=== PATIENT | male | born 1965 | race Caucasian/White ===

== ENCOUNTER 2016-09-24 07:36 | Emergency (ER) | payer OTHER | END 2016-09-24 19:50 | disposition short-term general hospital (02) | LOC: ER 07:36 | DX: I46.9 Cardiac arrest, cause unspecified (principal); I11.0 Hypertensive heart disease with heart failure; I50.9 Heart failure, unspecified; E11.9 Type 2 diabetes mellitus without complications; F17.200 Nicotine dependence, unspecified, uncomplicated; Z88.0 Allergy status to penicillin | CPT/HCPCS: 36415; 51702; 92950; 96365; 96366; 96367; 96368; 96375 ==